=== PATIENT | female | born 1990 | race Two or more races ===

== ENCOUNTER 2019-02-27 12:07 | Emergency (ER) | payer BC ==
[~2019-02-27] VITALS: Ht 157.5 cm; Wt 81.6 kg
[2019-02-27 14:39] VITALS: BP 133/87
[2019-02-27] MEDS ORDERED: METHOCARBAMOL 500 MG TAB PO ONE (16:00)
[2019-02-27] MEDS ORDERED: KETOROLAC TROMETH 60MG/2ML VIAL IM ONE (16:00)
== END 2019-02-27 16:34 | disposition home or self-care (01) ==
LOC: ER 12:07
DX: S92.352A Displaced fracture of fifth metatarsal bone, left foot, initial encounter for closed fracture (principal); M25.531 Pain in right wrist; M54.2 Cervicalgia; V43.52XA Car driver injured in collision with other type car in traffic accident, initial encounter; Y93.89 Activity, other specified; Y99.8 Other external cause status; Y92.410 Unspecified street and highway as the place of occurrence of the external cause
CPT/HCPCS: 73630; 81002; 81025; 99283; J1885